=== PATIENT | female | born 1985 | race Caucasian/White ===

== ENCOUNTER 2017-02-16 17:20 | Emergency (ER) | payer OTHER ==
[2017-02-16 18:35] VITALS: BP 121/72
--- NOTE | 2017-02-16 18:57 | UC ---
Eye Complaint HPI - HPI Summary HPI Summary: Day 4 of right medial eye lid irratation and erythema, day 2 of conjunctiva erythema, no visual deficits, no contact use - History of Current Complaint Chief Complaint: UCEye Stated Complaint: RIGHT EYE COMPLAINT Time Seen by Provider: 02/16/17 18:43 Hx Obtained From: Patient Hx Last Menstrual Period: 1 MO AGO ?: No Onset/Duration: Sudden Onset, Lasting Days - 4, Worse Since - past 2 days Timing: Constant Severity Initially: Mild Severity Currently: Moderate Location of Injury: Conjunctiva, Eye Lid (upper) Character: Foreign Body Sensation Aggravating Factor(s): Nothing Alleviating Factor(s): Nothing Associated Signs And Symptoms: Positive: Drainage (Purulent) - Allergies/Home Medications Allergies/Adverse Reactions: Allergies Allergy/AdvReac Type Severity Reaction Status Date / Time Aspirin Allergy Hives Verified 02/16/17 18:35 Penicillins Allergy Rash Verified 02/16/17 18:35 Sulfa Antibiotics Allergy Hives Verified 02/16/17 18:35 Home Medications: Home Medications Norethindrone (Contraceptive) [Sharobel] 0.35 mg PO BEDTIME 02/16/17 [History Confirmed 02/16/17] Sertraline* [Zoloft*] 100 mg PO BEDTIME 02/16/17 [History Confirmed 02/16/17] PMH/Surg Hx/FS Hx/Imm Hx Previously Healthy: No Psychological History: Depression - Surgical History Surgical History: Yes Surgery Procedure, Year, and Place: HERNIA REPAIR. ORAL SX-WISDOM TEETH - Family History Known Family History: Positive: None Family History: no reportd cardiovascular issues in family lineage - Social History Occupation: Employed Full-time Lives: With Family Alcohol Use: None Substance Use Type: None Smoking Status (MU): Never Smoked Tobacco Review of Systems Constitutional: Negative Skin: Negative Eyes: Drainage - right, Eye Redness - right ENT: Negative Respiratory: Negative Cardiovascular: Negative Gastrointestinal: Negative Genitourinary: Negative Motor: Negative Neurovascular: Negative Musculoskeletal: Negative Neurological: Negative Psychological: Negative All Other Systems Reviewed And Are Negative: Yes Physical Exam Triage Information Reviewed: Yes Appearance: Well-Appearing, No Pain Distress, Well-Nourished Vital Signs: Initial Vital Signs Temp 98.4 F 02/16/17 18:30 Pulse 64 02/16/17 18:30 Resp 18 02/16/17 18:30 BP 121/72 02/16/17 18:30 Pulse Ox 98 02/16/17 18:30 Vital Signs Reviewed: Yes Eye Exam: Normal Eyes: Positive: Conjunctiva Inflamed, Discharge, Other: - perrla, eomi, swelling medial right upper eye lid ENT Exam: Normal ENT: Positive: Normal ENT inspection, Hearing grossly normal, Pharynx normal, TMs normal. Negative: Nasal congestion, Nasal drainage, Trismus, Muffled/ hoarse voice Dental Exam: Normal Neck exam: Normal Neck: Positive: Supple, Nontender, No Lymphadenopathy Respiratory Exam: Normal Respiratory: Positive: Chest non-tender, Lungs clear, Normal breath sounds, No respiratory distress, No accessory muscle use Cardiovascular Exam: Normal Cardiovascular: Positive: RRR, No Murmur, Pulses Normal, Brisk Capillary Refill Musculoskeletal Exam: Normal Musculoskeletal: Positive: Strength Intact, ROM Intact, No Edema Neurological Exam: Normal Neurological: Positive: Alert, Muscle Tone Normal Psychological Exam: Normal Psychological: Positive: Normal Response To Family Skin Exam: Normal Eye Complaint Course/Dx - Course Course Of Treatment: Zithromax and erythromycin ointment follow with eye care provider, warm soaks - Differential Dx/Diagnosis Differential Diagnosis/HQI/PQRI: Conjunctivitis, Periorbital Cellulitis, Orbital Cellulitis Provider Diagnoses: od Conjuctivitis, stye right upper lid Discharge - Discharge Plan Condition: Stable Disposition: HOME Prescriptions: Azithromycin TAB* [Zithromax TAB (Z-DAISY) 250 mg #6 tabs] 2 tab PO SEE INSTRUCTION #1 daisy Erythromycin OPHTH.OINT* [Ilotycin OPHTH.OINT*] 1 applic RIGHT EYE Q4H #1 tube Patient Education Materials: Stye (ED), Warm Compress or Soak (ED) Forms: *Work Release Referrals: Alirio Gonzales DO [Primary Care Provider] - Additional Instructions: Follow with you eye doctor in 5-7 days and do not return to contact lens use until rechecked by eye care provider
== END 2017-02-16 19:02 | disposition home or self-care (01) ==
LOC: EDBD → MERGE 17:20 → UCCORT 17:20
DX: H10.31 Unspecified acute conjunctivitis, right eye (principal); H00.011 Hordeolum externum right upper eyelid; F32.9 Major depressive disorder, single episode, unspecified; Z88.6 Allergy status to analgesic agent; Z88.0 Allergy status to penicillin; Z88.2 Allergy status to sulfonamides
CPT/HCPCS: 99202; G0463

== ENCOUNTER 2017-05-01 07:38 | Emergency (ER) | payer OTHER ==
--- NOTE | 2017-05-01 07:45 | UC ---
Throat Pain/Nasal David HPI - HPI Summary HPI Summary: 31 year old female presents with sore throat x 1 week. - History of Current Complaint Stated Complaint: SORE THROAT CONGESTION COUGH Hx Obtained From: Patient Hx Last Menstrual Period: 1 MO AGO Onset/Duration: Sudden Onset Severity: Moderate Pain Scale Used: 0-10 Numeric - 5 Cough: Nonproductive - Allergies/Home Medications Allergies/Adverse Reactions: Allergies Allergy/AdvReac Type Severity Reaction Status Date / Time Aspirin Allergy Hives Verified 05/01/17 07:48 Penicillins Allergy Rash Verified 05/01/17 07:48 Sulfa Antibiotics Allergy Hives Verified 05/01/17 07:48 PMH/Surg Hx/FS Hx/Imm Hx Previously Healthy: Yes - Surgical History Surgical History: Yes Surgery Procedure, Year, and Place: HERNIA REPAIR. ORAL SX-WISDOM TEETH - Family History Known Family History: Positive: None Family History: no reportd cardiovascular issues in family lineage - Social History Alcohol Use: None Substance Use Type: None Smoking Status (MU): Never Smoked Tobacco Review of Systems Constitutional: Negative Skin: Negative Eyes: Negative ENT: Sore Throat, Nasal Discharge, Sinus Congestion, Sinus Pain/Tenderness Respiratory: Negative Cardiovascular: Negative Gastrointestinal: Negative Genitourinary: Negative Motor: Negative Neurovascular: Negative Musculoskeletal: Negative Neurological: Negative Psychological: Negative All Other Systems Reviewed And Are Negative: Yes Physical Exam Triage Information Reviewed: Yes Eye Exam: Normal ENT: Positive: Nasal congestion, Nasal drainage Dental Exam: Normal Neck exam: Normal Neck: Positive: 1 Respiratory Exam: Normal Cardiovascular Exam: Normal Abdominal Exam: Normal Musculoskeletal Exam: Normal Neurological Exam: Normal Psychological Exam: Normal Skin Exam: Normal Throat Pain/Nasal Course/Dx - Differential Dx/Diagnosis Provider Diagnoses: laryngitis. post nasal drip Discharge - Discharge Plan Condition: Stable Disposition: HOME Prescriptions: Azithromyxin IAN (NF) [Z-Ian (Zithromax) 250 mg tabs #6] 2 tab PO .TODAY, THEN 1 DAILY #6 tab LoraTADine TAB(NF) [Claritin 10 MG TAB(NF)] 10 mg PO DAILY #30 tab Magic M W2 Jay/Maal/Nyst/Lido* 5 ml SWISH SPIT QID PRN #120 ml PRN Reason: Pain Patient Education Materials: Pharyngitis in Children (ED) Referrals: Alirio Gonzales DO [Primary Care Provider] -
[2017-05-01 07:47] VITALS: BP 118/72
== END 2017-05-01 08:19 | disposition home or self-care (01) ==
LOC: UCCORT 07:38
DX: J04.0 Acute laryngitis (principal); R09.82 Postnasal drip; Z88.6 Allergy status to analgesic agent; Z88.0 Allergy status to penicillin; Z88.2 Allergy status to sulfonamides
CPT/HCPCS: 87651; 99212; G0463

== ENCOUNTER 2019-10-15 09:47 | Emergency (ER) | payer BC ==
--- OUTSIDE RECORDS SUMMARY | 2019-10-15 09:54 | XMS REPORT | Summary of Care ---
:1985 Author Organization [facility] Address [address] [place] [id number] Care Team Providers Name Role Phone GonzalesAlirio Primary Care Provider Reason for Referral Diagnostic Radiology (Routine) Status Reason Specialty Diagnoses / Referred By Referred To Procedures Contact Contact Authorized Radiology Diagnoses , unspecified gestational age Michelle Saha MD Procedures US OB and Maternal Evaluation First Trimester [address] [place] [id number] Email: [email or web address] Reason for Visit Diagnostic Radiology (Routine) Status Reason Specialty Diagnoses / Referred By Referred To Procedures Contact Contact Authorized Radiology Diagnoses , unspecified gestational age Michelle Saha MD Procedures US OB and Maternal Evaluation First Trimester [address] [place] [address] Email: [email or web address] Encounter Details Date Type Department Care Team Description 09/02/2019 Hospital Encounter Ultrasound Michelle Saha, , [facility] unspecified [address] gestational age [place], [place] [address] [id number] [place] [address] [phone] Allergies Active Allergy Reactions Severity Noted Date Comments Aspirin Hives 09/02/2019 Meperidine Hcl Nausea And Vomiting 09/02/2019 Penicillins Rash Low 09/02/2019 Sulfa Antibiotics Hives 09/02/2019 Midazolam Nausea And Vomiting 09/02/2019 documented as of this encounter (statuses as of 09/03/2019) Medications Medication Sig Dispensed Refills Start Date End Date Status Sertraline HCl 25 MG Take 25 mg by 0 Active Oral Tablet (ZOLOFT) mouth daily Vit-DSS-Fe Take by mouth 0 Active Cbn-FA ( AD PO) documented as of this encounter (statuses as of 09/03/2019) Active Problems Problem Noted Date History of eclampsia 09/02/2019 Forceps delivery 09/02/2019 09/02/2019 Anxiety 09/02/2019 Penicillin allergy 09/02/2019 History of allergy to aspirin 09/02/2019 Estimated Date of Delivery Comments Yes 03/22/2020 Based on Ultrasound documented as of this encounter (statuses as of 09/03/2019) Social History Tobacco Use Types Packs/Day Years Used Date Never Smoker Smokeless Tobacco: Never Used Alcohol Use Drinks/Week oz/Week Comments Not Currently Estimated Date of Delivery Comments Yes 03/22/2020 Based on Ultrasound Sex Assigned at Date Recorded Not on file Job Start Date Occupation Industry Not on file Not on file Not on file Travel History Travel Start Travel End No recent travel history available. documented as of this encounter Last Filed Vital Signs Not on filedocumented in this encounter Plan of Treatment Date Type Specialty Care Team Description 10/04/2019 Routine Obstetrics and Yifan, Michelle Frankel MD Gynecology [address] [facility] [address] [place] [address] [phone] Health Maintenance Due Date Last Done Comments MMR Vaccines (1 of 1 - Standard 1986 series) DTaP,Tdap,and Td Vaccines (1 - 1992 Tdap) HIV Screening 1998 Cervical Cancer Screening 5 years 2006 Influenza Vaccine 04/26/2019 Varicella Vaccines (2 of 2 - 13+ 09/30/2019 09/02/2019 2-dose series) Pneumococcal Vaccine: 65+ Years (1 2050 of 2 - PCV13) HIB Vaccines Aged Out No longer eligible based on patient's age to complete this topic Hepatitis A Vaccines Aged Out No longer eligible based on patient's age to complete this topic Hepatitis B Vaccines Aged Out No longer eligible based on patient's age to complete this topic IPV Vaccines Aged Out No longer eligible based on patient's age to complete this topic Pneumococcal Vaccine: Pediatrics Aged Out No longer eligible based on (0 to 5 Years) and At-Risk patient's age to complete Patients (6 to 64 Years) this topic documented as of this encounter Procedures Procedure Name Priority Date/Time Associated Diagnosis Comments OB AND Routine 09/02/2019 12:52 , Results for this MATERNAL EVALUATION PM EST unspecified procedure are in FIRST TRIMESTER gestational age the results [address] section. documented in this encounter Results OB and Maternal Evaluation First Trimester (09/02/2019 12:52 PM EST) Specimen Impressions Performed At IMPRESSION: Single intrauterine gestation with an estimated gestational [facility] age of 11 weeks 1 day +/- 1 week based on crown-rump length measurements with a heart rate of 164 bpm. Narrative Performed At INDICATION: Dates and viability. Estimated gestational age based on the date of the patient's LMP: 10 weeks. [facility] TECHNIQUE: Multiple real-time transabdominal sonographic images of the pelvis were obtained. FINDINGS: A single intrauterine gestation is visualized. The heart rate is 164 bpm. The crown-rump length measurement is 4.33 cm for an estimated gestational age of 11 weeks 1 day. The right ovary measures approximately 3.0 x 1.1 x 2.5 cm cm corresponding to a volume of 4.4 mL. The left ovary measures approximately 3.1 x 1.3 x 2.6 cm corresponding to a volume of 5.5 mL. Blood flow is visualized to both ovaries. No suspicious adnexal mass is visualized. There appears to be chorionic amniotic separation. Procedure Note Interface, Received Via [employer] [facility] - 09/02/2019 3:08 PM EST INDICATION: Dates and viability. Estimated gestational age based on the date of the patient's LMP: 10 weeks. TECHNIQUE: Multiple real-time transabdominal sonographic images of the pelvis were obtained. FINDINGS: A single intrauterine gestation is visualized. The heart rate is 164 bpm. The crown-rump length measurement is 4.33 cm for an estimated gestational age of 11 weeks 1 day. The right ovary measures approximately 3.0 x 1.1 x 2.5 cm cm corresponding to a volume of 4.4 mL. The left ovary measures approximately 3.1 x 1.3 x 2.6 cm corresponding to a volume of 5.5 mL. Blood flow is visualized to both ovaries. No suspicious adnexal mass is visualized. There appears to be chorionic amniotic separation. IMPRESSION: Single intrauterine gestation with an estimated gestational age of 11 weeks 1 day +/- 1 week based on crown-rump length measurements with a heart rate of 164 bpm. Performing Organization Address City/State/Zipcode Phone Number [facility] [address] [place] [address] documented in this encounter Visit Diagnoses Diagnosis , unspecified gestational age documented in this encounter
--- OUTSIDE RECORDS SUMMARY | 2019-10-15 09:54 | XMS REPORT | Summary of Care ---
:1985 Author Organization [facility] Address [address] [place] [address] Care Team Providers Name Role Phone Alirio Gonzales DO Primary Care Provider Encounter Details Date Type Department Care Team Description 09/02/2019 [facility] Clinical Michelle Saha, Screening, , for risk of pre-term labor; Encounter Pathology at MD Vitamin D deficiency; [place] [id number] Diabetes mellitus screening; [address] [facility] [address] Varicella affecting , antepartum; Room [address] [place], [place] Screening for human immunodeficiency virus; [place] [address] Screening for lead poisoning; [address] , unspecified gestational age; [phone] History of eclampsia; (Fax) Screening for venereal disease; related fatigue, antepartum; Need for hepatitis B screening test; Screening for rubella; Thyroid disorder screening Allergies Active Allergy Reactions Severity Noted Date [...] and Yifan, Michelle Frankel MD Gynecology [address] [facility] [address] [place] [address] [phone] Name Type Priority Associated Diagnoses Date/Time Varicella zoster Lab Routine Screening, , for 09/02/2019 12:59 PM EST antibody, IgG risk of pre-term labor Varicella affecting , antepartum Lead, Venous Lab Routine Screening, , for 09/02/2019 12:59 PM EST risk of pre-term labor Screening for lead poisoning HGB Lab Routine Screening, , for 09/02/2019 12:59 PM EST A/A2/F/other,quantitati risk of pre-term labor ve , unspecified gestational age Rubella antibody, IgG Lab Routine Screening, , for 09/02/2019 12: 59 PM EST risk of pre-term labor Screening for rubella Name Type Priority Associated Diagnoses Order Schedule Varicella zoster Lab Timed Screening, , As Needed for 1 antibody, IgG for risk of pre-term Occurrences starting labor 09/02/2019 until Varicella affecting 09/02/2019 , antepartum Lead, Venous Lab Timed Screening, , As Needed for 1 for risk of pre-term Occurrences starting labor 09/02/2019 until Screening for lead 09/02/2019 poisoning HGB Lab Timed Screening, , As Needed for 1 A/A2/F/other,quantitati for risk of pre-term Occurrences starting ve labor 09/02/2019 until , unspecified 09/02/2019 gestational age Rubella antibody, IgG Lab Timed Screening, , As Needed for 1 for risk of pre-term Occurrences starting labor 09/02/2019 until Screening for rubella 09/02/2019 Health Maintenance Due Date Last Done Comments [...] Procedure Name Priority Date/Time Associated Diagnosis Comments SYPHILIS IGG/IGM Routine 09/02/2019 12:59 Screening, , Results for this SCREEN W/REFLEX TO PM EST for risk of pre-term procedure are in RPR labor the results Screening for venereal section. disease HIV RAPID COMBO KIT Routine 09/02/2019 12:59 Screening, , Results for this SCRN ([facility] PM EST for risk of pre-term procedure are in CAMPUS ONLY) labor the results Screening for human section. immunodeficiency virus VITAMIN D 25 HYDROXY, Routine 09/02/2019 12:59 Screening, , Results for this TOTAL PM EST for risk of pre-term procedure are in labor the results Vitamin D deficiency section. HEPATITIS B SURFACE Routine 09/02/2019 12:59 Screening, , Results for this ANTIGEN PM EST for risk of pre-term procedure are in labor the results Need for hepatitis B section. screening test CBC AND DIFFERENTIAL Routine 09/02/2019 12:59 Screening, , Results for this PM EST for risk of pre-term procedure are in labor the results related section. fatigue, antepartum TYPE AND SCREEN Routine 09/02/2019 12:59 Screening, , Results for this PM EST for risk of pre-term procedure are in labor the results section. URIC ACID Routine 09/02/2019 12:59 Screening, , Results for this PM EST for risk of pre-term procedure are in labor the results History of eclampsia section. TSH Routine 09/02/2019 12:59 Screening, , Results for this PM EST for risk of pre-term procedure are in labor the results Thyroid disorder section. screening LACTATE DEHYDROGENASE Routine 09/02/2019 12:59 Screening, , Results for this PM EST for risk of pre-term procedure are in labor the results History of eclampsia section. COMPREHENSIVE Routine 09/02/2019 12:59 Screening, , Results for this METABOLIC PANEL PM EST for risk of pre-term procedure are in labor the results History of eclampsia section. documented in this encounter Results Type and Screen (09/02/2019 12:59 PM EST) ABO/RH(D) O POS [facility] at Gel Antibody Screen NEG [facility] Site Performed at [facility] [place], [place] Specimen EDTA Whole Blood Performing Organization Address City/[facility] Phone Number [facility] [address] [address] [phone] [facility] at [address] [address] TSH (09/02/2019 12:59 PM EST) TSH 0.350 0.270 - 4.200 u[IU]/mL [facility] at Specimen Plasma Performing Organization Address City/[facility]/Zipcode Phone Number [facility] [address] [address] [phone] [facility] at [address] [address] Hepatitis B surface antigen (09/02/2019 12:59 PM EST) Hepatitis B Non Non Reactive [facility] Surface Ag ReactiveComment: No Univ Clin active or previous Pathology infection. Susceptible to infection. Specimen Serum Performing Organization Address City/[facility]/Zipcode Phone Number [facility] [address] [place] [address] [facility] Clin [address] [place] [address] Pathology CBC and Differential (09/02/2019 12:59 PM EST) White Blood Cell 7.8 4 - 10 [facility] 10*3/uL [facility] at Red Blood Cell 4.70 4.1 - 5.3 [facility] 10*6/uL [facility] at Hemoglobin 13.5 11.5 - 15.5 [facility] g/dL [facility] at Hematocrit 39.9 36 - 45 % [facility] at Mean Cell Volume 84.9 80 - 96 fL [facility] at Mean Cell Hemoglobin 28.8 27 - 33 pg [facility] at Mean Cell Hgb Conc 33.9 32.0 - 36.0 [facility] g/dL [facility] at Red Cell Dist Width 14.2 11.5 - 14.5 % [facility] at Platelet Count 285 150 - 400 [facility] 10*3/uL [facility] at Differential Type Automated Diff [facility] at Neutrophil 67 % [facility] Lymphocyte 23 % [facility] Monocyte 8 % [facility] at Eosinophil 2 % [facility] at Basophil 0 % [facility] at Abs Neutrophil 5.23 1.8 - 7.0 [facility] 10*3/uL [facility] Univ at Abs Lymphocyte 1.78 1.2 - 4.0 [facility] 10*3/uL [facility] at Abs Monocyte 0.60 0 - 0.8 [facility] 10*3/uL [facility] at Abs Eosinophil 0.17 0 - 0.5 [facility] 10*3/uL [facility] at Abs Basophil 0.03 0 - 0.2 [facility] 10*3/uL [facility] at Nucleated Red Blood 0 0 - 0 [facility] Cells /100{WBCs} Medical Univ at Specimen EDTA Whole Blood Performing Organization Address City/State/Zipcode Phone Number [facility] AT [place] [address] [place] [address] [facility] at [address] [place] [address] Syphilis IgG/IgM Screen w/Reflex to RPR (09/02/2019 12:59 PM EST) Syphilis IgG/IgM Non Reactive Non Reactive [facility] Pathology Specimen Serum Performing Organization Address City/[facility] Phone Number [facility] [address] [place] [address] [facility] Clin [address] [place] [address] Pathology Uric acid (09/02/2019 12:59 PM EST) Uric Acid 2.4 2.4 - 5.7 mg/dl [facility] at Specimen Plasma Performing Organization Address City/[facility] Phone Number [facility] AT [address] [address] [phone] [facility] at [address] [address] LDH (09/02/2019 12:59 PM EST) Lactate dehydrogenase 185 122 - 214 U/L [facility] at Specimen Plasma Performing Organization Address [facility] Phone Number [facility] AT [address] [address] [phone] [facility] at [address] [address] Comprehensive Metabolic Panel (09/02/2019 12:59 PM EST) Albumin 4.4 3.5 - 5.2 g/dL [facility] at Bilirubin, Total 0.3 <1.2 mg/dL [facility] at Calcium 9.5 8.6 - 10.0 [facility] mg/dL [facility] at Chloride 98 98 - 107 mmol/L [facility] at Creatinine 0.27 (L) 0.50 - 0.90 [facility] mg/dL [facility] at Glucose 83 70 - 140 mg/dL [facility] at Alkaline Phosphatase 67 35 - 104 U/L [facility] at Potassium 4.1 3.4 - 5.1 [facility] mmol/L [facility] at Total Protein 7.3 6.4 - 8.3 g/dL [facility] at Sodium 134 (L) 136 - 145 [facility] mmol/L [facility] at AST/SGO 15 <32 U/L [facility] at Blood Urea Nitrogen 6 6 - 20 mg/dL [facility] at Osmolality, Caleb 275 275 - 300 [facility] mosm/kg Medical Univ at BUN/Cre Ratio 21 [facility] at Bicarbonate 23 22 - 29 mmol/L [facility] at ALT/SGP 11 <33 U/L [facility] at Anion Gap 13 8 - 15 mmol/L [facility] at A/G Ratio 2.0 [facility] at GFR Non >90 >60 [facility] [place] 2009 CDK-EPI mL/min/1.73m2 Medical Univ at GFR >90 >60 [facility] 2009 CKD-EPI mL/min/1.73m2 [facility] at Specimen Plasma Performing Organization Address City/State/Zipcode Phone Number [facility] AT [address] [address] [facility] at [address] [address] HIV Rapid Combo Kit Scrn ([facility] Only) (09/02/2019 12:59 PM EST) HIV 1/2 Antibody Non Reactive Non Reactive [facility] at HIV 1 p24 Rapid Non Reactive Non Reactive [facility] at Specimen Serum Performing Organization Address City/[facility]/Zipcode Phone Number [facility] AT [address] [address] [facility] at [address] [address] Vitamin D 25 Hydroxy, Total (09/02/2019 12:59 PM EST) Vitamin D 25 Hydroxy, 19 (L) >30 ng/mL [facility] TOTAL Clin Pathology Specimen Serum Performing Organization Address City/[facility]/Zipcode Phone Number [facility] [address] [place] [address] [facility] Clin [address] [place] [address] Pathology documented in this encounter Visit Diagnoses Diagnosis Screening, , for risk of pre-term labor Encounter for screening for risk of pre-term labor Vitamin D deficiency Unspecified vitamin D deficiency Diabetes mellitus screening Screening for diabetes mellitus Varicella affecting , antepartum Screening for human immunodeficiency virus Special screening examination for other specified viral diseases Screening for lead poisoning Screening for chemical poisoning and other contamination , unspecified gestational age History of eclampsia Personal history of other genital system and obstetric disorders Screening for venereal disease Screening examination for venereal disease related fatigue, antepartum Need for hepatitis B screening test Screening for rubella Screening examination for rubella Thyroid disorder screening Screening for thyroid disorder documented in this encounter
[2019-10-15 10:03] VITALS: BP 112/69
--- NOTE | 2019-10-15 10:24 | UC ---
Complaint Female HPI - HPI Summary HPI Summary: Pt presents with c/o sudden onset of urinary frequency, urgency and dysuria. Pt is 16 weeks - History Of Current Complaint Stated Complaint: URINARY COMPLAINT Time Seen by Provider: 10/15/19 09:51 Hx Obtained From: Patient Hx Last Menstrual Period: 1 MO AGO ?: Yes - due 03/19/20 Onset/Duration: Sudden Onset Timing: Intermittent Severity Initially: Mild Severity Currently: Mild Pain Intensity: 0 Character: Dull, Burning Aggravating Factor(s): Urination Associated Signs And Symptoms: Positive: Negative - Risk Factors Ectopic Risk Factor: Negative Ovarian Torsion Risk Factor: Negative - Allergies/Home Medications Allergies/Adverse Reactions: Allergies Allergy/AdvReac Type Severity Reaction Status Date / Time Penicillins Allergy Rash Verified 10/15/19 09:57 Home Medications: Home Medications Sertraline* [Zoloft*] 25 mg PO BEDTIME 02/16/17 [History Confirmed 10/15/19] Mv-Mn/Iron/FA/Herbal/Digestive [ One Tablet] 1 each PO DAILY 10/15/19 [ History Confirmed 10/15/19] Nitrofurantoin Monohyd/M-Cryst [Macrobid 100 mg Capsule] 100 mg PO Q12H #6 cap 10/15/19 [Rx] PMH/Surg Hx/FS Hx/Imm Hx Previously Healthy: Yes - Surgical History Surgical History: Yes Surgery Procedure, Year, and Place: HERNIA REPAIR. ORAL SX-WISDOM TEETH - Family History Known Family History: Positive: Cardiac Disease - Social History Occupation: Employed Full-time Lives: With Family Alcohol Use: None Substance Use Type: None Smoking Status (MU): Never Smoked Tobacco Have You Smoked in the Last Year: No - Immunization History Most Recent Influenza Vaccination: 03/2017 Vaccination Up to Date: Yes Review of Systems All Other Systems Reviewed And Are Negative: Yes Constitutional: Positive: Negative Skin: Positive: Negative Eyes: Positive: Negative ENT: Positive: Negative Respiratory: Positive: Negative Cardiovascular: Positive: Negative Gastrointestinal: Positive: Negative Genitourinary: Positive: Dysuria, Frequency, Urgency Motor: Positive: Negative Neurovascular: Positive: Negative Musculoskeletal: Positive: Negative Neurological/Mental Status: Positive: Negative Psychological: Positive: Negative Is Patient Immunocompromised?: No Physical Exam Triage Information Reviewed: Yes Appearance: Well-Appearing Vital Signs: Initial Vital Signs Temp 97.6 F 10/15/19 09:58 Pulse 84 10/15/19 09:58 Resp 16 10/15/19 09:58 BP 112/69 10/15/19 09:58 Pulse Ox 99 10/15/19 09:58 Vital Signs Reviewed: Yes Eye Exam: Normal ENT: Positive: Hearing grossly normal Neck exam: Normal Respiratory: Positive: No respiratory distress Abdominal Exam: Other - no c/o tenderness Musculoskeletal Exam: Normal Neurological Exam: Normal Psychological Exam: Normal Skin Exam: Normal Complaint Female Dx - Differential Dx/Diagnosis Differential Diagnosis/HQI/PQRI: Urinary Tract Infection Provider Diagnosis: Dysuria in Discharge ED - Sign-Out/Discharge Documenting (check all that apply): Patient Departure All imaging exams completed and their final reports reviewed: No Studies - Discharge Plan Condition: Stable Disposition: HOME Prescriptions: Nitrofurantoin Monohyd/M-Cryst [Macrobid 100 mg Capsule] 100 mg PO Q12H #6 cap Patient Education Materials: Dysuria (ED) Referrals: Alirio Gonzales DO [Primary Care Provider] - If Needed - Billing Disposition and Condition Condition: STABLE Disposition: Home
--- NOTE | 2019-10-17 07:49 | UC ---
- Progress Note Progress Note: Your urine culture was negative. you do not have a urinary tract infection Recommend discontinue antibiotics If still having symptoms, recommend follow up with [facility] or return to urgent care Course/Dx - Diagnoses Provider Diagnoses: Dysuria in Discharge ED - Sign-Out/Discharge Documenting (check all that apply): Post-Discharge Follow Up All imaging exams completed and their final reports reviewed: No Studies - Discharge Plan Condition: Stable Disposition: HOME Prescriptions: Nitrofurantoin Monohyd/M-Cryst [Macrobid 100 mg Capsule] 100 mg PO Q12H #6 cap Patient Education Materials: Dysuria (ED) Referrals: Alirio Gonzales DO [Primary Care Provider] - If Needed - Billing Disposition and Condition Condition: STABLE Disposition: Home
== END 2019-10-15 10:36 | disposition home or self-care (01) ==
LOC: UCCORT 09:47
DX: O26.892 Other specified pregnancy related conditions, second trimester (principal); R30.0 Dysuria; Z3A.16 16 weeks gestation of pregnancy; Z88.0 Allergy status to penicillin
CPT/HCPCS: 81003; 87086; 99212; G0463